=== PATIENT | female | born 1985 | race Caucasian/White ===

== ENCOUNTER 2016-04-06 17:29 | Observation (INO) ==
[2016-04-06] MEDS ORDERED: Ipratropium/Albuterol Neb 3 ML IH ONE (18:02)
[2016-04-06 18:03] LABS: Basophils % 0.4 %; Eosinophils % 0.2 %; Hematocrit 38.1 % (35.3-44.9); Hemoglobin 13.3 g/dL (11.5-15.4); Immature Granulocytes % 2.4 % (0-4); Lymphocytes # 1.7 K/mcL (0.6-4.6); Lymphocytes % 16.8 %; Mean Corpuscular HGB Conc 34.9 g/dL (31.6-35.5); Mean Corpuscular Hemoglobin 31.4 pg (28.0-33.3); Mean Corpuscular Volume 89.9 fL (83.0-100.0); Mean Platelet Volume 11.3 fL (9.4-12.4); Monocytes # 0.5 K/mcL (0.0-1.3); Monocytes % 4.9 %; Neutrophils # 7.6 K/mcL (1.6-8.9); Platelet Count 172 K/mcL (140-400); Red Blood Count 4.24 M/mcL (3.82-4.97); Red Cell Distribution Width 13.6 % (11.5-14.5); Segmented Neutrophils % 75.3 %
[2016-04-06 18:04] LABS: Bilirubin,Urine Negative (Negative); Blood,Urine Negative (Negative); Clarity,Urine Clear (Clear); Color,Urine Yellow (Yellow); Glucose,Urine (UA) Normal (Normal); Ketones,Urine Negative (Negative); Leukocyte Esterase,Urine Moderate (Negative); Nitrite,Urine Negative (Negative); Protein,Urine 30 mg/dL (Neg-Trace); Specific Gravity,Urine 1.017 (1.010-1.025); Urobilinogen,Urine Normal (Normal)
[2016-04-06 18:07] LABS: Bacteria,Urine Moderate per hpf (None-Few); Hyaline Casts,Urine None Seen per lpf (None-Few); RBC,Urine 0-3 per hpf (0-3); Squamous Epithelial Cell,Urine Many per lpf (None-Few); WBC,Urine 15-30 per hpf (0-3)
[2016-04-06 18:20] LABS: Alanine Aminotransferase 20 Units/L (0-55); Aspartate Amino Transferase 24 Units/L (5-34); BUN/Creatinine Ratio 15 (6-26); Blood Urea Nitrogen 10 mg/dL (7-20); Lactate Dehydrogenase 277 Units/L (159-327); Uric Acid 4.3 mg/dL (2.6-6.0); eGFR For African Americans > 60 (> 60); eGFR For Non-African Americans > 60 (> 60)
[2016-04-06 18:48] LABS: Protein/Creatinine Ratio,Urine 0.51 mg/mg (0-0.20)
--- NOTE | 2016-04-06 19:20 | OB/GYN History & Physical ---
Date of Encounter: 04/06/16 Time of Encounter: 19:19 Assessment and Plan (1) Elevated blood pressure reading Current visit: Yes Status: Acute Patient with blood pressure readings at home >150 systolic. Initial blood pressure here 141/93. Concern for pre-eclampsia especially given patient's past history. 1. Monitor blood pressures Q15min 2. Labs for pre-eclampsia: CBC, Liver function tests, BUN/creatinine, urine analysis with urine total protein and urine protein creatinine ratio (2) 33 weeks gestation of Current visit: Yes Status: Acute Patient is not having any contractions on the monitor. She denies any fluid loss or contracts and she reports good movement. 1. Continue to monitor heart rate and contractions. (3) Upper respiratory infection Current visit: No Status: Acute Patient with upper respiratory infection. Temperature of 100.8 here. Lungs are diminished bilaterally with diffuse wheezing. 1. Duoneb breathing treatment 2. CXR 3. Flu swab 4. O2 monitoring. Supplemental O2 if needed. Qualifiers: URI type: unspecified URI Qualified Code(s): J06.9 - Acute upper respiratory infection, unspecified (4) Factor 5 Leiden mutation, heterozygous Current visit: Yes Status: Acute Patient with history of Factor 5 Leiden mutation. Reports that she takes lovenox 40mg every night around 11pm. 1. Lovenox 40mg daily History of Present Illness Chief complaint: Elevated blood pressure and LE swelling HPI: Ms. Pelayo is a 30 year old female at 33 weeks and 4 days, patient of Dr. Disla, who presents with concern about elevated blood pressure. She reports that today she took her blood pressure and it was >150 systolic. She reports associated lower extremity swelling. She states that the swelling has been getting worse. Patient reports that she has had no blood pressure issues with this however the baby has been measuring small and she is scheduled for a US on Apr 16. Patient also reports that since Thursday she has had an upper respiratory infection with cough, congestion and runny nose. She reports some fever/chills , occasional nausea but no vomiting. She states that she currently has a headache but denies dizziness or changes in vision. She states that she feels short of breath and has occasional chest pressure with deep breaths. Patient states that she went to an urgent care on Thursday where she was given a prescription for an inhaler that she has used twice today with minimal improvement. Patient's first was a term vaginal delivery. Her second was twins and while in the hospital for pre-eclampsia she spontaneous went into labor. One twin was born via and one via vaginal delivery. Patient has a history of Crohn's Disease, Factor 5 Liden deficiency on lovenox, and scoliosis. On exam, patient is awake and alert. Her nose is red and she is congested on conversation. Lungs are diminished bilaterally with wheezing throughout. She has significant lower extremity edema, 2+ pitting on exam. Vitals show a temperature of 100.8 and elevated blood pressure at 141/93. Past Med Surg Social Fam HX - Past Medical History Medical history: GERD, other (Factor 5 Liden deficiency, scolisos, Crohn's disease) Psychiatric history: anxiety, depression - Past Surgical History Surgical History: - Social History Smoking Status: Current every day smoker Packs per day: 0.5 Smokeless Tobacco Status: No Alcohol use: none Drug use: none - Family History Father Living Status: Hx Family Cancer: Yes (lung cancer) Obstetrical History - Pregnancies : 5 Para: 3 Term: 1 : 2 Ab's: 2 Livin - History/Complications History/Complications: Patient's first was a term vaginal delivery. Her second was twins and while in the hospital for pre-eclampsia she spontaneous went into labor. One twin was born via and one via vaginal delivery. Medications and Allergies Albuterol Sulfate [Albuterol Inhaler] 2 puff IH QID PRN #1 inhaler 04/05/16 [Rx] Enoxaparin [Lovenox] 40 mg SQ DAILY 04/05/16 [History] Ferrous Sulfate [Iron] 325 mg PO BID 04/05/16 [History] Pnv95/Ferrous Fumarate/FA [ Caplet] 1 each PO DAILY 04/05/16 [History] Allergies infliximab [From Remicade] Allergy (Verified 04/02/15 12:51) See Comments Unknown Sulfa (Sulfonamide Antibiotics) Allergy (Verified 04/06/16 17:44) See Comments pt states that she does not remember what type of reaction she had when she received sulfa medication but that she remembers being told to consider it an allergy sulfamethoxazole [From Bactrim] Allergy (Verified 04/02/15 12:51) Rash tramadol [From Ultram] Allergy (Verified 04/02/15 12:51) Difficulty Breathing trimethoprim [From Bactrim] Allergy (Verified 04/02/15 12:51) Rash aspirin [ASA] Adverse Reaction (Verified 04/02/15 12:51) Gastrointestinal Upset ibuprofen Adverse Reaction (Verified 04/02/15 12:51) Gastrointestinal Upset Review of System OB - Constitutional Constitutional ROS IM: fever(s), headache(s), lethargy, weakness - Nose, mouth, and throat Nose, mouth and throat: nasal congestion, nasal discharge, sinus pressure - Cardiovascular Cardiovascular: chest pain (with inspiration), leg edema, no syncope - Respiratory Respiratory: cough, dyspnea, dyspnea on exertion, wheezing, pain on inspiration , chest congestion, pain with cough - Gastrointestinal Gastrointestinal: no abdominal pain, no change in bowel habits - Genitourinary Genitourinary: no abnormal vaginal bleeding, no difficulty urinating, no difficulty voiding, no urinary frequency, no urinary hesitancy, no urinary incontinence, no vaginal discharge - Muscloskeletal Musculoskeletal: myalgias - Neurological Nerological: headache(s), no confusion, no loss of vision, no numbness, no paresthesias Exam - Vital Signs Vital signs: Initial Vital Signs Resp Pulse Ox 18 100 04/06/16 18:58 04/06/16 18:58 - Constitutional Constitutional: well developed, well nourished, mild distress - HEENT HEENT: Normocephaly, Mucus Membranes Moist - Neck Neck exam: full ROM - Lungs Respiratory exam: decreased breath sounds, prolonged expiratory phase, wheezes - Cardiovascular Cardiovascular exam: RRR - Abdomen Abdomen: Present: bowel sounds normal, non tender - Extremities Extremities exam: pedal edema Deep Tendon Reflex Grade: 2+ Normal Results Result Diagrams: 04/06/16 17:54 04/06/16 17:54 Abnormal lab results Urine Protein 30 mg/dL (Neg-Trace) H 04/06/16 17:54 Ur Leukocyte Esterase Moderate (Negative) H 04/06/16 17:54 Urine Microscopic WBC 15-30 per hpf (0-3) H 04/06/16 17:54 Ur Squamous Epith Cells Many per lpf (None-Few) H 04/06/16 17:54 Urine Bacteria Moderate per hpf (None-Few) H 04/06/16 17:54 Protein/Creatinin Ratio 0.51 mg/mg (0-0.20) H 04/06/16 18:29 Urine Total Protein 38 mg/dL (1-14) H 04/06/16 18:29 All other labs normal.
[2016-04-06] MEDS: Betamethasone Acet/SodPhos 6 MG/ML MDV IM SCH (20:06)
[2016-04-06] MEDS ORDERED: Ringers Solution, Lactated 1,000 ML IVC ONE (20:19)
[2016-04-06] MEDS ORDERED: Ringers Solution, Lactated 1,000 ML ONE ×2 (20:27→21:38)
[2016-04-06] MEDS ORDERED: 0.9 % Sodium Chloride 1,000 ML IVC ONE (20:37)
[2016-04-06] MEDS ORDERED: Acetaminophen 325 MG TABLET PO ONE (20:38)
[2016-04-06] MEDS: Azithromycin 250 MG TABLET PO SCH (20:56)
[2016-04-06] MEDS: *HR* Enoxaparin 40 MG/0.4 ML SYRINGE SQ SCH (21:20)
--- NOTE | 2016-04-06 21:21 | Event Note ---
Date of Encounter: 04/06/16 Time of Encounter: 21:21 Patient Update 1. Elevated Blood Pressure Reading - Pre-eclampsia: Patient with continued elevated blood pressures, last 160 systolic. Urine total protein >30 at 38 and urine protein creatinine ration >0.3 at 0.5. Due to the blood pressure readings and the urine protein patient meets basic definition of pre-eclampsia. 1. Give labetalol 100mg PO for the elevated blood pressure 2. Give betamethason 12mg Q24hr x 2 doses due to being 33 weeks. 3. Will do a 24 hours urine total protein. 4. Will re drawn [facility] labs tomorrow morning - CBC, liver function tests, BUN/ creatinine, urine protein creatinine ratio 5. Please call OB if blood pressures >160/100 2. 33 weeks gestation of Patient is not having contraction on the monitor however baby is tachycardic at this time. 1. Continue to monitor heart rate 2. Bolus fluids 3. Upper Respiratory Infection - likely pneumonia Patient has now spiked a temperature of 102. CXR did not show an infiltrate at this time and WBC was within normal limits. Breathing improved after last breathing treatment however patient is still tight with fine wheezes. I believe this could likely be pneumonia and with this patient being I believe it is appropriate to be more aggressive with antibiotics. Flu swab (-) 1. Continue to monitor O2, supplemental oxygen as needed 2. Will get blood cultures x 2 and sputum cultures 3. Start ceftriaxone 1g every 24hr + Azithromycin 500mg every 24 hrs 4. Will consult internal medicine for further recommendations
--- NOTE | 2016-04-06 22:27 | Internal Med History&Physical ---
Date of Encounter: 04/08/16 Time of Encounter: 22:21 Assessment and Plan (1) Community acquired pneumonia Current visit: Yes Status: Acute Suspected community acquired pneumonia patient is hypoxic with high fever. There is no obvious infiltrate on chest x-ray though. I will start the patient empirically on ceftriaxone and azithromycin. Sputum on blood cultures. Influenza antigen was checked, was negative. Patient is elemental bronchospasm she will be kept, [id number] breathing treatments every 4 hours. She is already getting betamethasone for preeclampsia and that should help with elemental bronchospasm case has been discussed with turntable engineer patient will be transferred to medical floor for telemetry monitoring. (2) Factor 5 Leiden mutation, heterozygous Current visit: Yes Status: Acute Patient denies prior history of DVT and pulmonary embolism. The presentation is more suggestive of an infectious pathologies as high fever nasal congestion cough etc. picture suggestive moreover respiratory infection. She will be Lovenox for DVT Prophylaxis 40 Milligrams Daily Subcutaneously (3) Preeclampsia Current visit: Yes Status: Acute This will be managed by obstetrics service. Patient is on betamethasone and blood pressure medications as needed. Patient is not currently on magnesium sulfate. Discuss case with [employer] [employer] there will be monitoring her blood pressure and managing preeclampsia. They will also be monitoring her heart sounds. Qualifiers: Trimester: third trimester Qualified Code(s): O14.93 - Unspecified pre- eclampsia, third trimester (4) DVT prophylaxis Current visit: Yes Status: Acute [facility] - H&P: HPI Chief complaint: cough and fever History of present illness: Ms. Pelayo is a 30 year old female who was 33 weeks with history of factor 5 Leiden mutation discovered after screening because patient's mother had factor 5 related recurrent PEs, history of Crohn's disease not currently on any immunosuppressant medications, history of preeclampsia with her prior pregnancies 6 years ago after which she has been normotensive presents to our facility today after she was found to be hypertensive at home after she checked her blood pressure. Patient had noticed that she is gaining weight she has also been complaining of headache vision problems check her blood pressure systolic was around 160 mmHg. She was sent to the obstetrics floor is currently being managed for suspected preeclampsia. Medicine service was consulted because the patient is having fever and cough. For the past 2 days patient has been having nonproductive cough sore throat nasal stuffiness nasal tone of voice chest wheezing and shortness of breath with less than ordinary exertion in addition to fevers and chills or temperature during my interview was 102. Patient mentioned that her son was diagnosed with pneumonia. Influenza swell was performed and was negative. Patient denies any history of asthma or chronic lung problems. However she still smokes half a pack cigarettes daily for the past 15 years. Patient was saturating 93% on room air. Patient was also having chest pains only with coughing rarely with inspiration. She has never had DVT or pulmonary embolism before. Patient is currently not any immunosuppressant medications. She denies alcohol intake or illicit drug use. Her mother was diagnosed with factor 5 Leiden mutation and had multiple DVT in pulmonary embolism. Past Med Surg Social Fam HX - Past Medical History Medical history: GERD, other Psychiatric history: anxiety, depression - Past Surgical History Surgical History: - Social History Smoking Status: Current every day smoker Packs per day: 0.5 Smokeless Tobacco Status: No Alcohol use: none Drug use: none - Family History Father Living Status: Hx Family Cancer: Yes (lung cancer) Internal Medicine - H&P: Meds Albuterol Sulfate [Albuterol Inhaler] 2 puff IH QID PRN #1 inhaler 04/05/16 [Rx] Enoxaparin [Lovenox] 40 mg SQ DAILY 04/05/16 [History] Ferrous Sulfate [Iron] 325 mg PO BID 04/05/16 [History] Pnv95/Ferrous Fumarate/FA [ Caplet] 1 each PO DAILY 04/05/16 [History] Cyanocobalamin (Vitamin B-12) [Vitamin B-12] 250 mcg PO DAILY 04/07/16 [History] Allergies infliximab [From Remicade] Allergy (Verified 04/07/16 09:54) See Comments Unknown Sulfa (Sulfonamide Antibiotics) Allergy (Verified 04/07/16 09:54) See Comments pt states that she does not remember what type of reaction she had when she received sulfa medication but that she remembers being told to consider it an allergy sulfamethoxazole [From Bactrim] Allergy (Verified 04/07/16 09:54) Rash tramadol [From Ultram] Allergy (Verified 04/07/16 09:54) Difficulty Breathing trimethoprim [From Bactrim] Allergy (Verified 04/07/16 09:54) Rash aspirin [ASA] Adverse Reaction (Verified 04/07/16 09:54) Gastrointestinal Upset ibuprofen Adverse Reaction (Verified 04/07/16 09:54) Gastrointestinal Upset All Systems PM: A 10-system review of systems was performed and is negative for pertinent findings except as documented above in the HPI. Review of systems: 10 point ROS systems is negative except for HPI - Constitutional Vitals: Resp Pulse Ox 18 100 04/06/16 18:58 04/06/16 18:58 Exam: Gen.: patient is alert oriented not in distress. Cardiac: Normal S1 S2 no additional sounds or murmurs. Tachycardic chest: Diminished air entry. Expiratory wheezing abdomen soft nontender normal bowel sounds lower extremity: 1+ swelling neuro no focal deficit Head: tenderness on maxillary sinuses. nasal tone of voice. No jaundice Internal Med - H&P Results - Labs CBC & Chem 7: 04/07/16 21:22 04/07/16 04:12 Labs: Short CBC 04/06/16 Range/Units 17:54 WBC 10.1 (4.3-11.1) K/mcL Hgb 13.3 (11.5-15.4) g/dL Hct 38.1 (35.3-44.9) % Plt Count 172 (140-400) K/mcL Neutrophils # 7.6 (1.6-8.9) K/mcL BMP 04/06/16 17:54 BUN 10 Creatinine 0.65 Liver Function 04/06/16 Range/Units 17:54 AST 24 (5-34) Units/L ALT 20 (0-55) Units/L Urine 04/06/16 Range/Units 17:54 Urine Color Yellow (Yellow) Urine Clarity Clear (Clear) Urine pH 6.0 (5.0-8.0) pH Units Ur Specific [place] 1.017 (1.010-1.025) Urine Protein 30 H (Neg-Trace) mg/dL Urine Glucose (UA) Normal (Normal) mg/dL - Impressions ITS Impressions Chest X-Ray 04/06/16 18:00 IMPRESSION: Clear lungs. D/ / Maikel Vargas MD / Maikel Vargas MD Interpreting Provider: Maikel Vargas MD
--- NOTE | 2016-04-06 22:29 | Event Note ---
Date of Encounter: 04/06/16 Time of Encounter: 22:29 Appreciate evaluation and recommendations of internal medicine. It is agreed that overall patient would be better served on a general medicine floor for management of her pneumonia. Patient will be transferred to internal medicine service with OB consulting to further manage pre-eclampsia. Patient will have Qshift non-stress tests. At this time, baby's heart rate has improved and looks good on the monitor. All PIH evaluation labs are ordered. Fever has come down with tylenol. Patient now on supplemental oxygen for o2 saturation of 93%
[2016-04-07] MEDS: Ipratropium/Albuterol Neb 3 ML IH SCH ×8 (00:07→23:35)
[2016-04-07] MEDS: Fluticasone Propionate Nasal 50 MCG/SPRAY BOTTLE NS SCH ×2 (00:19→09:35)
[2016-04-07] MEDS: Ringers Solution, Lactated 1,000 ML IVC SCH ×2 (03:54→12:37)
[2016-04-07 04:46] LABS: Alanine Aminotransferase 18 Units/L (0-55); Albumin 2.6 g/dL (3.5-5.0); Albumin/Globulin Ratio 0.7 (1.1-2.2); Alkaline Phosphatase 210 Units/L (38-126); Aspartate Amino Transferase 19 Units/L (5-34); BUN/Creatinine Ratio 16 (6-26); Bilirubin,Direct 0.1 mg/dL (0.0-0.5); Bilirubin,Indirect 0.2 mg/dL (0.0-1.2); Bilirubin,Total 0.3 mg/dL (0.2-1.2); Blood Urea Nitrogen 9 mg/dL (7-20); Calcium 8.4 mg/dL (8.6-10.8); Carbon Dioxide 16 mEq/L (19-29); Chloride 107 mEq/L (98-109); Globulin 3.6 g/dL (2.4-3.5); Glucose 110 mg/dL (70-99); Magnesium 1.5 mg/dL (1.6-2.6); Osmolality,Calculated 277 (280-300); Potassium 3.7 mEq/L (3.5-4.5); Sodium 134 mEq/L (136-145); Total Protein 6.2 g/dL (6.0-8.3); eGFR For African Americans > 60 (> 60); eGFR For Non-African Americans > 60 (> 60)
[2016-04-07 04:47] LABS: Alanine Aminotransferase 19 Units/L (0-55); Aspartate Amino Transferase 18 Units/L (5-34); BUN/Creatinine Ratio 16 (6-26); Blood Urea Nitrogen 9 mg/dL (7-20); Uric Acid 4.3 mg/dL (2.6-6.0); eGFR For African Americans > 60 (> 60); eGFR For Non-African Americans > 60 (> 60)
--- NOTE | 2016-04-07 09:15 | OB/GYN Progress Note ---
Date of Encounter: 04/07/16 Time of Encounter: 09:00 - Assessment and Plan (1) 33 weeks gestation of Current Visit: Yes Status: Acute (2) Community acquired pneumonia Current Visit: Yes Status: Acute Once patient is cleared by medicine and they feel she is stable enough to come back to for transfer back down stairs. (3) DVT prophylaxis Current Visit: Yes Status: Acute (4) Factor 5 Leiden mutation, heterozygous Current Visit: Yes Status: Acute Subjective - Subjective Interval history: Patient states feeling much better than yesterday still having some shortness of breath but improving. Not complaining of any obstetrical issues baby is still moving no contractions. Antepartum ROS: other Objective - Vital Signs Vital Signs: Vital Signs Temp Pulse Resp BP Pulse Ox 04/07/16 07:16 97.7 F 92 16 123/83 97 04/07/16 06:45 91 18 125/70 96 04/07/16 06:36 98 18 104/62 94 L 04/07/16 06:15 94 18 120/66 90 L 04/07/16 06:05 106 16 134/95 95 04/07/16 05:45 103 16 128/80 96 04/07/16 05:20 94 16 136/80 97 04/07/16 04:50 16 95 04/07/16 04:38 100 16 120/73 96 04/07/16 04:15 78 130/71 96 04/07/16 03:45 101 16 128/91 96 04/07/16 03:15 97.4 F L 82 20 135/82 95 04/07/16 02:45 83 16 118/74 97 04/07/16 02:15 99 18 130/111 96 04/07/16 01:45 80 18 127/77 96 04/07/16 01:18 91 18 137/93 96 04/07/16 01:10 87 16 141/84 95 04/07/16 00:08 17 96 04/06/16 23:41 97.9 F 94 21 129/83 95 04/06/16 18:58 18 100 Intake and Output 04/06/16 04/07/16 04/07/16 23:59 07:59 15:59 Intake Total 0 / 0 100 / 100 Output Total 200 / 200 700 / 700 Balance -200 / -200 -600 / -600 Intake: Oral 0 / 0 100 / 100 Output: Urine 200 / 200 700 / 700 Other: # Voids 0 Weight 109.3 kg 109.3 kg Patient Weight 04/07/16 23:59 Weight 109.3 kg - Exam FHR: category 1 FHR comments: heart tones 140s reactive no contraction seen on the NST Abdomen: Present: gravid - Labs Labs: Abnormal lab results Sodium 134 mEq/L (136-145) L 04/07/16 04:12 Carbon Dioxide 16 mEq/L (19-29) L 04/07/16 04:12 Glucose 110 mg/dL (70-99) H 04/07/16 04:12 Calculated Osmolality 277 (280-300) L 04/07/16 04:12 Calcium 8.4 mg/dL (8.6-10.8) L 04/07/16 04:12 Magnesium 1.5 mg/dL (1.6-2.6) L 04/07/16 04:12 Alkaline Phosphatase 210 Units/L (38-126) H 04/07/16 04:12 Albumin 2.6 g/dL (3.5-5.0) L 04/07/16 04:12 Globulin 3.6 g/dL (2.4-3.5) H 04/07/16 04:12 Albumin/Globulin Ratio 0.7 (1.1-2.2) L 04/07/16 04:12 Urine Protein 30 mg/dL (Neg-Trace) H 04/06/16 17:54 Ur Leukocyte Esterase Moderate (Negative) H 04/06/16 17:54 Urine Microscopic WBC 15-30 per hpf (0-3) H 04/06/16 17:54 Ur Squamous Epith Cells Many per lpf (None-Few) H 04/06/16 17:54 Urine Bacteria Moderate per hpf (None-Few) H 04/06/16 17:54 Protein/Creatinin Ratio 0.51 mg/mg (0-0.20) H 04/06/16 18:29 Urine Total Protein 38 mg/dL (1-14) H 04/06/16 18:29
[2016-04-07] MEDS: Prenatal Vit/FA 1 EACH TABLET PO SCH (09:35)
[2016-04-07] MEDS ORDERED: Saline Nasal Spray 44 ML BOTTLE NS PRN (11:29)
[2016-04-07] MEDS ORDERED: Acetaminophen 325 MG TABLET PO PRN (11:48)
--- NOTE | 2016-04-07 13:28 | Internal Med Progress Note ---
<Erick Lewis - Last Filed: 04/07/16 17:22> Date of Encounter: 04/07/16 Time of Encounter: 09:15 - Assessment and plan (1) Upper respiratory infection Current Visit: No Status: Acute Assessment and plan: Patient demonstrates rhinorrhea, postnasal drainage associated with cough. Patient is afebrile and influenza was negative. Current antibiotic coverage includes ceftriaxone and azithromycin. Patient was admitted with dyspnea in the setting of preeclampsia. Respiratory status improving, continue scheduled DuoNeb. Low suspicion for pneumonia at this time. Patient's dyspnea may be associated with preeclampsia, well continue current treatment with azithromycin for total 5 days Plan: Continue azithromycin Continue Flonase 50 g daily. START Nasal saline rinse Qualifiers: URI type: unspecified URI Qualified Code(s): J06.9 - Acute upper respiratory infection, unspecified (2) 33 weeks gestation of Current Visit: Yes Status: Acute Assessment and plan: Patient is 30 weeks gestation and currently followed by ROUTE SALES REPRESENTATIVE during inpatient stay. Patient's abdomen is nontender to palpation, . Deferring management to ROUTE SALES REPRESENTATIVE. We will transfer patient to labor and delivery unit when medically cleared. (3) Preeclampsia Current Visit: Yes Status: Acute Assessment and plan: 30-year-old female who is 33 weeks gestation admitted with hypertension, protein in her urine and shortness of breath meeting preeclampsia criteria. Patient's blood pressures are normotensive after starting labetalol. Management per ROUTE SALES REPRESENTATIVE. Qualifiers: Qualified Code(s): O14.93 - Unspecified pre-eclampsia, third trimester (4) Factor 5 Leiden mutation, heterozygous Current Visit: Yes Status: Acute Assessment and plan: Patient has known history of factor V Leiden, denies any history of DVT or PE. She is currently on 40 mg Lovenox subcutaneously once a day during her . There is concern for pulmonary embolism as the patient is tachycardic, dyspneic, chest x-rays clear, history of factor V Leiden. Plan: -Bilateral lower extremities venous Doppler to evaluate for potential DVTs - Echocardiogram to evaluate for cardiomegaly. - If scans are clear patient will be transferred to labor and delivery for further preeclamptic management. (5) DVT prophylaxis Current Visit: Yes Status: Acute Assessment and plan: Patient on 40 of Lovenox subcutaneously daily. - Subjective Interval history: Mrs. Pelayo 30-year-old female for history of factor V Leiden, preeclampsia with previous pregnancies has been seen and evaluated patient bedside this morning. She is awake alert and interactive, in no acute distress said that she is much improved compared to admission. She feels her breathing is improved and she denies chest pain, chest pressure, palpitations or dyspnea. She is tolerating nasal cannula oxygen at 2 L which feels is sufficient. She discussed her history of preeclampsia, recurrent urinary tract infections and factor V Leiden. She denies any history of blood clots but was diagnosed after her second miscarriage and her mother had frequent blood clots. Currently urine she is taking 40 of Lovenox subcutaneous daily. She denies any productive cough or blood in her sputum, blood in her bowels or blood in her urine. She denies any current discomfort with urination. She admitted to occasional blurriness in her vision but currently her vision is without any abnormalities. She does have lower extremity edema which she says has been slightly worse as her has advanced. - Constitutional Vitals: Temp Pulse Resp BP Pulse Ox 98.4 F 104 16 124/87 94 L 04/07/16 11:34 04/07/16 11:34 04/07/16 11:34 04/07/16 11:34 04/07/16 11:34 General appearance: Present: cooperative, A&O X 3, pleasant, no acute distress - Head Head exam: Present: atraumatic, normocephalic - Eye Eye exam: Present: PERRL, conjuntiva pink, sclera anicteric Pupils: Present: PERRL - ENT ENT exam: Present: mucous membranes moist - Neck Neck exam general surgery: Present: supple, trachea midline - Respiratory Respiratory exam: Present: CTAB - Cardiovascular Cardiovascular exam: Present: RRR, systolic murmur Additional comments: Grade 2/6 systolic murmur - GI/Abdominal Additional comments: abdomen, nontender to palpation fundal height appropriate. - Extremities Exam Additional comments: Patient has bilateral lower extremity 1+ edema without any signs of erythema and nontender to palpation. Bilateral posterior tibial dorsal pedal pulses are 2+ bilaterally/symmetric. - Back Exam Back exam: Present: normal inspection - Neurological Exam Neurological exam: Present: alert, CN II-XII intact, oriented X3, reflexes normal (Reflexes are 2+ brachial, patellar and Achilles bilaterally.), no focal deficits, strengths equal and symetr throughout - Psychiatric Psychiatric exam: Present: normal affect, normal mood - Skin Skin exam: Present: warm Internal Medicine: Result - Labs CBC & Chem 7: 04/06/16 17:54 04/07/16 04:12 Labs: Short CBC 04/06/16 Range/Units 17:54 WBC 10.1 (4.3-11.1) K/mcL Hgb 13.3 (11.5-15.4) g/dL Hct 38.1 (35.3-44.9) % Plt Count 172 (140-400) K/mcL Neutrophils # 7.6 (1.6-8.9) K/mcL BMP 04/06/16 04/07/16 04/07/16 17:54 04:12 04:12 Sodium 134 L Potassium 3.7 Chloride 107 Carbon Dioxide 16 L BUN 10 9 9 Creatinine 0.65 0.58 0.58 Glucose 110 H Calcium 8.4 L Liver Function 04/06/16 04/07/16 04/07/16 Range/Units 17:54 04:12 04:12 Total Bilirubin 0.3 (0.2-1.2) mg/dL Direct Bilirubin 0.1 (0.0-0.5) mg/dL AST 24 18 19 (5-34) Units/L ALT 20 19 18 (0-55) Units/L Alkaline Phosphatase 210 H (38-126) Units/L Albumin 2.6 L (3.5-5.0) g/dL Urine 04/06/16 Range/Units 17:54 Urine Color Yellow (Yellow) Urine Clarity Clear (Clear) Urine pH 6.0 (5.0-8.0) pH Units Ur Specific [place] 1.017 (1.010-1.025) Urine Protein 30 H (Neg-Trace) mg/dL Urine Glucose (UA) Normal (Normal) mg/dL - Impressions Impressions Chest X-Ray 04/06/16 18:00 IMPRESSION: Clear lungs. D/ / Maikel Vargas MD / Maikel Vargas MD Interpreting Provider: Maikel Vargas MD <Jeffrey Jones - Last Filed: 04/07/16 18:34> Date of Encounter: 04/07/16 - Assessment and plan (1) Acute bronchitis Current Visit: Yes Status: Acute Qualifiers: Bronchitis organism: other organism Qualified Code(s): J20.8 - Acute bronchitis due to other specified organisms (2) Upper respiratory infection Current Visit: No Status: Acute Qualifiers: URI type: unspecified URI Qualified Code(s): J06.9 - Acute upper respiratory infection, unspecified (3) Sinus tachycardia Current Visit: Yes Status: Acute (4) Preeclampsia Current Visit: Yes Status: Acute Qualifiers: Trimester: third trimester Qualified Code(s): O14.93 - Unspecified pre- eclampsia, third trimester (5) Factor 5 Leiden mutation, heterozygous Current Visit: Yes Status: Acute - Constitutional Vitals: Temp Pulse Resp BP Pulse Ox 97.9 F 92 18 130/93 94 L 04/07/16 14:59 04/07/16 14:59 04/07/16 15:52 04/07/16 14:59 04/07/16 15:52 Internal Medicine: Result - Labs CBC & Chem 7: 04/06/16 17:54 04/07/16 04:12 Labs: BMP 04/07/16 04/07/16 04:12 04:12 Sodium 134 L Potassium 3.7 Chloride 107 Carbon Dioxide 16 L BUN 9 9 Creatinine 0.58 0.58 Glucose 110 H Calcium 8.4 L Liver Function 04/07/16 04/07/16 Range/Units 04:12 04:12 Total Bilirubin 0.3 (0.2-1.2) mg/dL Direct Bilirubin 0.1 (0.0-0.5) mg/dL AST 18 19 (5-34) Units/L ALT 19 18 (0-55) Units/L Alkaline Phosphatase 210 H (38-126) Units/L Albumin 2.6 L (3.5-5.0) g/dL - Impressions Impressions Chest X-Ray 04/06/16 18:00 IMPRESSION: Clear lungs. D/ / Maikel Vargas MD / Maikel Vargas MD Interpreting Provider: Maikel Vargas MD - Attending Attestation I examined this patient and my medical decision-making was reviewed with the Resident Physician on 04/07/16. I agree with the documented findings, disposition and treatment plan as described except to the extent set forth below. Ms. Pelayo is currently in observation for PIH, acute bronchitis and hypoxemia. She remains high risk due to and potential for further respiratory complications. Ms. Pelayo feels somewhat better than last evening. She is coughing a lot and has a lot of upper airway congestion. No fever. No wheeze. BP has been managed by OB. No diarrhea. Exam Alert. Mod distress due to respiratory issues. Mucus membranes moist Heart tachy and regular Lungs with scant rhonchi Abd soft I/P 1. Sinus tachycardia - ? related to aerosols and illness. Continue IV fluids 2. Acute bronchitis - on IV abx 3. PIH - per OB 4. Hx UC Further diagnoses and plan as above.
--- NOTE | 2016-04-07 16:24 | Venous Imaging Report ---
LE Venous Duplex Patient Name:Adrianne Pelayo Order Number:[id number] Procedure Date:04/07/2016 Date:1985Age:30 yrs Gender:Female Location:[facility] Room #: 2NE28 Yoga Teacher:Alecia Molina RVT, RDSTEPH Referring MD:Jeffrey Jones DO team otr truck driver:Analia Heredia MD Reading MD:Morgan Martínez MD , FACS Primary Indications:Shortness of Breath Secondary Indications: Risk Factors Yes/No Anticoagulants Yes Hx of DVT No Impressions: Bilateral lower extremity: normal superficial and deep exam. Recommendations: After imaging the patient returned to their room. Critical findings reported to [place] by phone by Alecia Molina RVT, RDSTEPH. Findings Venous Duplex Results: Right: Venous imaging of the lower extremity reveals full patency and normal vessel compressibility of the right distal iliac, right common femoral, right superficial femoral, right popliteal, right posterior tibial, right peroneal, right great saphenous and right lesser saphenous. Doppler signals in the evaluated veins were normal. Left: Venous imaging of the lower extremity reveals full patency and normal vessel compressibility of the left distal iliac, left common femoral, left superficial femoral, left popliteal, left posterior tibial, left peroneal, left great saphenous and left lesser saphenous. Doppler signals in the evaluated veins were normal. Prior Study: No prior study available for comparison. Lower Extremity Venous Duplex Side Vein Compress Spontaneous Flow Augment Diameter (cm) Depth (cm) Right Distal Iliac Normal Yes Phasic Yes Right Common Femoral Normal Yes Phasic Yes Right Superficial Femoral Normal Yes Phasic Yes Right Popliteal Normal Yes Phasic Yes Right Posterior Tibial Normal Yes Phasic Yes Right Peroneal Normal Yes Phasic Yes Right Great Saphenous Normal Yes Phasic Yes Right Lesser Saphenous Normal Yes Phasic Yes Left Distal Iliac Normal Yes Phasic Yes Left Common Femoral Normal Yes Phasic Yes Left Superficial Femoral Normal Yes Phasic Yes Left Popliteal Normal Yes Phasic Yes Left Posterior Tibial Normal Yes Phasic Yes Left Peroneal Normal Yes Phasic Yes Left Great Saphenous Normal Yes Phasic Yes Left Lesser Saphenous Normal Yes Phasic Yes Updated by Morgan Martínez MD, FACS on 04/07/2016 4:18:25 PM Morgan Martínez MD electronically signed on 04/07/2016 4:18:47 PM with status of Final
--- NOTE | 2016-04-07 17:44 | Electrocardiograph Report ---
[facility] Test Date: 2016-04-07 Pat Name: Adrianne Pelayo Department: 111 Room: 2NE28 Gender: F Chief Deputy Court Clerk: LILI : 1985 Requested By: Emil Hull Order Number: [id number] Reading MD: Felix Rhodes DO Measurements Intervals [place] Rate: 87 P: 40 WV: 163 QRS: 54 QRSD: 85 T: 53 QT: 369 QTc: 413 Interpretive Statements Sinus rhythm Electronically Signed On 04-07-16 17:43:37 EST by Felix Rhodes DO
[2016-04-07] MEDS: Azithromycin 250 MG TABLET PO SCH (20:42)
[2016-04-07] MEDS: Betamethasone Acet/SodPhos 6 MG/ML MDV IM SCH (20:43)
[2016-04-07 21:54] LABS: Hematocrit 32.8 % (35.3-44.9); Mean Corpuscular HGB Conc 34.1 g/dL (31.6-35.5); Mean Corpuscular Hemoglobin 31.4 pg (28.0-33.3); Mean Corpuscular Volume 91.9 fL (83.0-100.0); Mean Platelet Volume 11.3 fL (9.4-12.4); Nucleated Red Blood Cells 0.7 /100 WBC (0); Platelet Count 139 K/mcL (140-400); Red Blood Count 3.57 M/mcL (3.82-4.97); Red Cell Distribution Width 14.1 % (11.5-14.5)
[2016-04-07 22:02] LABS: Hemoglobin 11.2 g/dL (11.5-15.4)
[2016-04-07 22:34] LABS: Lymphocytes # 2.3 K/mcL (0.6-4.6); Monocytes # 0.3 K/mcL (0.0-1.3); Neutrophils # 2.8 K/mcL (1.6-8.9); Platelet Estimate Normal (Normal)
[2016-04-07] MEDS: *HR* Enoxaparin 40 MG/0.4 ML SYRINGE SQ SCH (22:54)
[2016-04-08] MEDS: Ringers Solution, Lactated 1,000 ML IVC SCH (03:39)
[2016-04-08] MEDS: Ipratropium/Albuterol Neb 3 ML IH SCH ×2 (04:41→08:20)
[2016-04-08] MEDS: Fluticasone Propionate Nasal 50 MCG/SPRAY BOTTLE NS SCH (08:36)
[2016-04-08] MEDS: Prenatal Vit/FA 1 EACH TABLET PO SCH (08:36)
[2016-04-08] MEDS ORDERED: FERROUS FUMARATE PO SCH (09:32)
[2016-04-08] MEDS ORDERED: PNV95 PO SCH (09:32)
[2016-04-08] MEDS ORDERED: Ipratropium/Albuterol Neb 3 ML IH PRN (09:32)
[2016-04-08] MEDS ORDERED: [UNRECOGNIZED DRUG - OTHER] PO SCH (09:32)
--- NOTE | 2016-04-08 09:49 | ECHO - Doppler Report ---
Echocardiogram Name: Adrianne Pelayo Date of Study: 04/07/2016 Date: 1985 Ht: 67.0 in Medical Record#: [id number] Age: 30 Wt: 240.0 lb Gender: Female BSA: 2.18 Order #: [id number] Location: [facility] Room #: 2NE28 Reading Physician: Anna Peterson DO Nutrition Faculty Member: Yvette Tony RDCS Ordering Physician: Erick Lewis DO Primary Physician: None Indications: Cardiomegaly Impressions: LVEF 55%. Normal left ventricular size and systolic function. Normal diastolic function of the left ventricle. Normal right ventricular size and function. Mild mitral regurgitation. Mild tricuspid regurgitation. No pulmonary hypertension. Left Ventricular Wall Motion: Rest Echo Findings All wall segments showed normal motion. Findings: Study Quality * Technically adequate exam. ECG Findings * Normal sinus rhythm. Left Ventricle * Normal LV chamber size, wall thickness and function. * Normal left ventricular diastolic function. * LVEF 55%. Left Atrium * Normal left atrial size. Mitral Valve * Normal mitral valve structure. * No mitral stenosis. * Mild mitral regurgitation. Aortic Valve * No aortic regurgitation. * Trileaflet aortic valve. * Normal aortic valve structure. * No aortic stenosis. Tricuspid Valve * Normal tricuspid valve structure. * Mild tricuspid regurgitation. Pulmonic Valve * Pulmonic valve is not well visualized. * No pulmonic stenosis. * No pulmonic regurgitation. Pulmonary Artery * Pulmonary artery not well visualized. Right Ventricle * Normal right ventricular structure and function. Right Atrium * Normal right atrial size. Interatrial Septum * Interatrial septum not well evaluated. IVC * The IVC is not well evaluated. Pericardium * There is no pericardial effusion present. Aorta * Normally sized aortic root. History Family History of CAD Measurements: BP: 130/ 93 2D Normal Values IVSd: 1.00 cm 0.6 - 1.0 cm LVIDd: 5.00 cm 3.7 - 5.6 cm LVPWd: 1.00 cm 0.6 - 1.1 cm LVIDs: 3.16 cm 1.5 - 3.6 cm AO: 2.50 cm < 4.0 cm LA: 4.10 cm 2.0 - 4.0cm %FS: 46.70 cm >25 % LA volume: 55 Mitral Valve Peak E:1.27 m/sec Peak A:.81 m/sec E/A Ratio:1.6 Peak E' Lat Jarod:15.1 cm/s Peak E' Med Jarod:18.5 cm/s E/E' Lat Ratio:8.4 E/E' Med Ratio:6.9 Tricuspid Valve TV Regurg Peak Grad: 27.00mmHg TV Regurg Peak Jarod: 2.58m/sec Updated by Anna Peterson on 04/08/2016 9:43:26 AM electronically signed on 04/08/2016 9:44:06 AM with status of Final Wall Motion [place]: 1=Normal, 2=Hypokinesis, 3=Akinesis, 4=Dyskinesis, 5=Aneurysmal, 6=Hyperkinetic, X=Not Visualized (Blank)=Missing
--- NOTE | 2016-04-08 10:41 | Internal Med Progress Note ---
<Erick Lewis - Last Filed: 04/08/16 10:37> Date of Encounter: 04/08/16 Time of Encounter: 08:25 - Assessment and plan (1) Upper respiratory infection Status: Acute Assessment and plan: Patient demonstrates rhinorrhea, postnasal drainage associated with cough. Patient is afebrile and influenza was negative. Current antibiotic coverage includes ceftriaxone and azithromycin. Patient was admitted with dyspnea in the setting of preeclampsia. Respiratory status improving, continue scheduled DuoNeb. Low suspicion for pneumonia at this time. Patient's dyspnea may be associated with smoking and preeclampsia, well continue current treatment with azithromycin for total 5 days Plan: Continue azithromycin Continue Flonase 50 g daily. Continue Nasal saline rinse Qualifiers: URI type: unspecified URI Qualified Code(s): J06.9 - Acute upper respiratory infection, unspecified (2) 33 weeks gestation of Status: Acute Assessment and plan: Patient is 30 weeks gestation and currently followed by CHAIR INSPECTOR during inpatient stay. Patient's abdomen is nontender to palpation, . Deferring management to CHAIR INSPECTOR. We will transfer patient to labor and delivery unit. (3) Preeclampsia Status: Acute Assessment and plan: 30-year-old female who is 33 weeks gestation admitted with hypertension, protein in her urine and shortness of breath meeting preeclampsia criteria. Patient's blood pressures are normotensive after starting labetalol. Management per CHAIR INSPECTOR. Qualifiers: Trimester: third trimester Qualified Code(s): O14.93 - Unspecified pre- eclampsia, third trimester (4) Factor 5 Leiden mutation, heterozygous Status: Acute Assessment and plan: Patient has known history of factor V Leiden, denies any history of DVT or PE. She is currently on 40 mg Lovenox subcutaneously once a day during her . Bilateral lower extremity venous Doppler: Bilateral lower extremities normal superficial and deep examination. Echocardiogram performed 04/08/2016: Demonstrates LVEF 55%, normal left ventricular size and systolic function. Normal diastolic function of left ventricle. Mild mitral regurgitation. Mild tricuspid regurgitation. No pulmonary hypertension. Plan: - Patient stable to transfer to labor and delivery. - Continue subcutaneous Lovenox. (5) Sinus tachycardia Status: Acute Assessment and plan: Patient demonstrates sinus tachycardia with sitting up and ambulation likely secondary to dual neb treatments. Duo nebulizer treatments have been adjusted to when necessary. (6) DVT prophylaxis Status: Acute Assessment and plan: Patient on 40 of Lovenox subcutaneously daily. - Subjective Interval history: Mrs. Pelayo 30-year-old female for history of factor V Leiden, preeclampsia with previous pregnancies has been seen and evaluated patient bedside this morning. She is awake alert and interactive, in no acute distress said that she is much improved compared to admission. She feels her breathing is improved and she denies chest pain, chest pressure, palpitations or dyspnea. She is sitting up in bed maintaining oxygen saturations greater than 90% at room air. She continues to have rhinorrhea and nasal congestion but feels that her breathing is back to baseline. She denies any nausea or vomiting and has been tolerating by mouth intake. She feels comfortable with transfer back down to labor and delivery this morning. - Constitutional Vitals: Temp Pulse Resp BP Pulse Ox 98.3 F 82 16 119/66 97 04/08/16 07:23 04/08/16 07:23 04/08/16 08:34 04/08/16 07:23 04/08/16 08:34 General appearance: Present: cooperative, A&O X 3, pleasant, no acute distress - Head Head exam: Present: atraumatic, normocephalic - Eye Eye exam: Present: PERRL, conjuntiva pink, sclera anicteric Pupils: Present: PERRL - ENT ENT exam: Present: mucous membranes moist Additional comments: Swollen turbinates bilateral. - Neck Neck exam general surgery: Present: supple - Respiratory Respiratory exam: Present: wheezes Additional comments: Patient has diffuse inspiratory expiratory wheeze with improvement in restriction. Chest symmetrical bilateral quarreling respiratory effort. Respirations are nonlabored. No rhonchi or rales. - Cardiovascular Cardiovascular exam: Present: RRR - GI/Abdominal Additional comments: Abdomen is , nontender to palpation - Extremities Exam Additional comments: Patient has bilateral 1+ pitting edema nontender to palpation - Back Exam Back exam: Present: normal inspection - Neurological Exam Neurological exam: Present: alert, oriented X3, reflexes normal, no focal deficits, strengths equal and symetr throughout - Psychiatric Psychiatric exam: Present: normal affect, normal mood - Skin Skin exam: Present: warm Internal Medicine: Result - Labs CBC & Chem 7: 04/07/16 21:22 04/07/16 04:12 Labs: Short CBC 04/07/16 Range/Units 21:22 WBC 5.4 (4.3-11.1) K/mcL Hgb 11.2 L D (11.5-15.4) g/dL Hct 32.8 L (35.3-44.9) % Plt Count 139 L (140-400) K/mcL Neutrophils # 2.8 (1.6-8.9) K/mcL Consult Discharge Plan - Plan Instructions: Upper Respiratory Infection (DC) Prescriptions: Pseudoephedrine [Sudafed] 30 mg PO Q4HR #12 tablet <Jeffrey Jones - Last Filed: 04/08/16 18:30> Date of Encounter: 04/08/16 - Assessment and plan (1) Acute bronchitis Status: Acute Qualifiers: Bronchitis organism: other organism Qualified Code(s): J20.8 - Acute bronchitis due to other specified organisms (2) Upper respiratory infection Status: Acute Qualifiers: URI type: unspecified URI Qualified Code(s): J06.9 - Acute upper respiratory infection, unspecified (3) Sinus tachycardia Status: Acute (4) Preeclampsia Status: Acute Qualifiers: Trimester: third trimester Qualified Code(s): O14.93 - Unspecified pre- eclampsia, third trimester (5) Factor 5 Leiden mutation, heterozygous Status: Acute - Constitutional Vitals: Temp Pulse Resp BP Pulse Ox 97.6 F 78 16 136/85 98 04/08/16 13:52 04/08/16 13:52 04/08/16 13:52 04/08/16 13:52 04/08/16 13:52 Internal Medicine: Result - Labs CBC & Chem 7: 04/07/16 21:22 04/07/16 04:12 Labs: Short CBC 04/07/16 Range/Units 21:22 WBC 5.4 (4.3-11.1) K/mcL Hgb 11.2 L D (11.5-15.4) g/dL Hct 32.8 L (35.3-44.9) % Plt Count 139 L (140-400) K/mcL Neutrophils # 2.8 (1.6-8.9) K/mcL - Attending Attestation Ms. Pelayo is currently on medical floor for acute bronchitis complicating PIH. Ms. Pelayo is doing better today. She has less cough and not as hypoxic or tachycardic. Exam Alert. Comfortable Heart reg Lungs with scattered rhonchi but few I/P 1. Acute bronchitis 2. PIH Plan transfer to OB - will sign off - call if needed. Complete azithromycin. Further diagnoses and plan as above.
[2016-04-08 10:42] LABS: Total Volume 24 Hour,Urine 1.94 Liters (0.60-1.60)
[2016-04-08] MEDS ORDERED: Acetaminophen 325 MG TABLET PO PRN (12:06)
[2016-04-08 12:18] LABS: Creatinine 24 Hour,Urine 1.4 g/day (0.71-1.65)
[2016-04-08 12:18] LABS: Protein/Creatinine Ratio,Urine 0.33 mg/mg (0-0.20)
--- NOTE | 2016-04-08 13:01 | OB/GYN Progress Note ---
Date of Encounter: 04/08/16 Time of Encounter: 12:58 - Assessment and Plan (1) 33 weeks gestation of Current Visit: Yes Status: Acute I will stop her azithromycin because she does not have pneumonia, I will also stop the 24 hr urine protein since we already know that she has preeclampsia, I did mental health counselor her that we will determine if she is severe with worsening labs eg thrombocytopenia, worsening creatinine/liver labs etc and symptoms such MINER, SOB etc, I'll send her sudafed, She will be discharged to follow up with Dr Disla tomorrow. Subjective - Subjective Interval history: Ms. Pelayo is a 30 year old female at 33+ weeks who was admitted with SOB in the setting of preeclampsia without severe features. She had ECHO, CXR, flu testing which returned negative. I saw her this AM and determined that she has a cold. She does not report LOF, VB or ctxs, feels good FM. Objective - Vital Signs Vital Signs: Vital Signs Temp Pulse Resp BP Pulse Ox 04/08/16 09:30 97.7 F 79 16 132/81 04/08/16 08:34 16 97 04/08/16 07:23 98.3 F 82 18 119/66 98 04/08/16 04:41 16 98 04/08/16 04:15 97.7 F 76 18 122/73 90 L 04/08/16 00:16 98.1 F 68 18 127/79 98 04/07/16 23:35 18 98 04/07/16 20:49 18 94 L 04/07/16 20:35 97.8 F 91 19 139/97 90 L 04/07/16 15:52 18 94 L 04/07/16 14:59 97.9 F 92 16 130/93 98 Intake and Output 04/07/16 04/08/16 04/08/16 23:59 07:59 15:59 Intake Total 1480 / 1480 550 / 550 Output Total 350 / 350 700 / 700 150 / 150 Balance 1130 / 1130 -150 / -150 -150 / -150 Intake: IV Fluids 1000 / 1000 Lactated Ringers 1,000 ML 1000 / 1000 @ 125 mls/hr IVC .Q8H SUSHANT Rx#:[id number] Oral 480 / 480 550 / 550 Output: Urine 350 / 350 700 / 700 150 / 150 Other: Meal Dinner Percent of Meal Consumed 100% # Voids 2 Weight 115.5 kg 107.7 kg Patient Weight 04/08/16 23:59 Weight 107.7 kg - Exam Auscultation: bilateral: wheezes (scattered ) Abdomen: Present: normal appearance Uterus: Present: normal - Labs Labs: Abnormal lab results RBC 3.57 M/mcL (3.82-4.97) L 04/07/16 21:22 Hgb 11.2 g/dL (11.5-15.4) L D 04/07/16 21:22 Hct 32.8 % (35.3-44.9) L 04/07/16 21:22 Plt Count 139 K/mcL (140-400) L 04/07/16 21:22 Nucleated RBCs/100 WBC 0.7 /100 WBC (0) H 04/07/16 21:22 Sodium 134 mEq/L (136-145) L 04/07/16 04:12 Carbon Dioxide 16 mEq/L (19-29) L 04/07/16 04:12 Glucose 110 mg/dL (70-99) H 04/07/16 04:12 Calculated Osmolality 277 (280-300) L 04/07/16 04:12 Calcium 8.4 mg/dL (8.6-10.8) L 04/07/16 04:12 Magnesium 1.5 mg/dL (1.6-2.6) L 04/07/16 04:12 Alkaline Phosphatase 210 Units/L (38-126) H 04/07/16 04:12 Albumin 2.6 g/dL (3.5-5.0) L 04/07/16 04:12 Globulin 3.6 g/dL (2.4-3.5) H 04/07/16 04:12 Albumin/Globulin Ratio 0.7 (1.1-2.2) L 04/07/16 04:12 Urine Protein 30 mg/dL (Neg-Trace) H 04/06/16 17:54 Ur Leukocyte Esterase Moderate (Negative) H 04/06/16 17:54 Urine Microscopic WBC 15-30 per hpf (0-3) H 04/06/16 17:54 Ur Squamous Epith Cells Many per lpf (None-Few) H 04/06/16 17:54 Urine Bacteria Moderate per hpf (None-Few) H 04/06/16 17:54 Urine Total Volume 1.94 Liters (0.60-1.60) H 04/07/16 22:00 Ur Total Protein 24 Hr 369 mg/day (0-299) H 04/07/16 22:00 Protein/Creatinin Ratio 0.33 mg/mg (0-0.20) H 04/08/16 11:55 Urine Total Protein 19 mg/dL (1-14) H 04/08/16 11:55
[2016-04-08 14:12] VITALS: BP 136/85
[2016-04-08] MEDS ORDERED: Azithromycin 250 MG TABLET PO SCH (21:00)
[2016-04-08] MEDS ORDERED: *HR* Enoxaparin 40 MG/0.4 ML SYRINGE SQ SCH (22:00)
[2016-04-09] MEDS ORDERED: Prenatal Vit/FA 1 EACH TABLET PO SCH (09:00)
[2016-04-09] MEDS ORDERED: Fluticasone Propionate Nasal 50 MCG/SPRAY BOTTLE NS SCH (09:00)
== END 2016-04-08 16:05 | disposition home or self-care (01) ==
LOC: 1NENULAB → SUATTDRO 17:29 → 2NENU 23:34 → 1NENUOBS 04-08 09:27
PROVIDERS: ADMIT Obstetrics & Gynecology; ATTEND Internal Medicine

== ENCOUNTER 2016-04-11 07:40 | Inpatient (IN) ==
[2016-04-11 03:20] LABS: Hematocrit 35.6 % (35.3-44.9); Hemoglobin 12.1 g/dL (11.5-15.4); Mean Corpuscular Hemoglobin 30.8 pg (28.0-33.3); Mean Corpuscular Volume 90.6 fL (83.0-100.0); Mean Platelet Volume 11.8 fL (9.4-12.4); Nucleated Red Blood Cells 1.3 /100 WBC (0); Platelet Count 177 K/mcL (140-400); Red Blood Count 3.93 M/mcL (3.82-4.97); Red Cell Distribution Width 13.6 % (11.5-14.5)
[2016-04-11 03:37] LABS: Alanine Aminotransferase 36 Units/L (0-55); Aspartate Amino Transferase 29 Units/L (5-34); BUN/Creatinine Ratio 30 (6-26); Blood Urea Nitrogen 20 mg/dL (7-20); Lactate Dehydrogenase 256 Units/L (159-327); Uric Acid 4.5 mg/dL (2.6-6.0); eGFR For African Americans > 60 (> 60); eGFR For Non-African Americans > 60 (> 60)
--- NOTE | 2016-04-11 03:58 | OB/GYN History & Physical ---
Date of Encounter: 04/11/16 Time of Encounter: 04:00 Assessment and Plan (1) 34 weeks gestation of Current visit: Yes Status: Acute (2) Elevated blood pressure reading Current visit: No Status: Acute (3) Factor 5 Leiden mutation, heterozygous Current visit: No Status: Chronic History of Present Illness HPI: Ms. Pelayo is a 30 year old female 5 para 3 at 34 weeks and 2/7 complaints of severe headache unrelieved by Tylenol and elevated blood pressure. She had been admitted last weekend for community-acquired pneumonia. On her initial presentation at that time her blood pressure was elevated but responded to one dose of labetalol. She presents complaining of recurrence of the symptoms. She denies contractions, vaginal bleeding, loss of fluid, and reports active fetus. Patient did receive steroids on her previous admission. Past Med Surg Social Fam HX - Past Medical History Medical history: GERD, other Psychiatric history: anxiety, depression - Past Surgical History Surgical History: , other - Social History Smoking Status: Current every day smoker Smokeless Tobacco Status: No Alcohol use: none Drug use: none - Family History Father Adopted: No Living Status: Hx Family Cancer: Yes (lung cancer) Obstetrical History - Pregnancies : 5 Para: 3 Ab's: 1 Medications and Allergies Albuterol Sulfate [Albuterol Inhaler] 2 puff IH QID PRN #1 inhaler 04/05/16 [Rx] Enoxaparin [Lovenox] 40 mg SQ DAILY 04/05/16 [History] Ferrous Sulfate [Iron] 325 mg PO BID 04/05/16 [History] Pnv95/Ferrous Fumarate/FA [ Caplet] 1 each PO DAILY 04/05/16 [History] Cyanocobalamin (Vitamin B-12) [Vitamin B-12] 250 mcg PO DAILY 04/07/16 [History] Pseudoephedrine [Sudafed] 30 mg PO Q4HR #12 tablet 04/08/16 [Rx] Allergies infliximab [From Remicade] Allergy (Verified 04/07/16 09:54) See Comments Unknown Sulfa (Sulfonamide Antibiotics) Allergy (Verified 04/07/16 09:54) See Comments pt states that she does not remember what type of reaction she had when she received sulfa medication but that she remembers being told to consider it an allergy sulfamethoxazole [From Bactrim] Allergy (Verified 04/07/16 09:54) Rash tramadol [From Ultram] Allergy (Verified 04/07/16 09:54) Difficulty Breathing trimethoprim [From Bactrim] Allergy (Verified 04/07/16 09:54) Rash aspirin [ASA] Adverse Reaction (Verified 04/07/16 09:54) Gastrointestinal Upset ibuprofen Adverse Reaction (Verified 04/07/16 09:54) Gastrointestinal Upset Review of System OB All systems PM: reviewed and no additional remarkable complaints except as stated - Genitourinary Genitourinary: amenorrhea - Menstruation Menstruation: amenorrhea - Neurological Nerological: as per HPI, headache(s) Exam - Constitutional Constitutional: well developed, mild distress, morbidly obese - Neck Neck exam: full ROM - Lungs Respiratory exam: CTAB - Cardiovascular Cardiovascular exam: RRR - Abdomen Abdomen: Present: gravid, non tender - Extremities Extremities exam: full ROM, pedal edema Deep Tendon Reflex Grade: 2+ Normal Results Result Diagrams: 04/11/16 02:55 04/11/16 02:55 Abnormal lab results Nucleated RBCs/100 WBC 1.3 /100 WBC (0) H 04/11/16 02:55 BUN/Creatinine Ratio 30 (6-26) H 04/11/16 02:55 All other labs normal. - Attending Attestation ashley palacios md [facility]
[2016-04-11 04:03] LABS: Protein/Creatinine Ratio,Urine 4.74 mg/mg (0-0.20)
[2016-04-11 04:05] LABS: Lymphocytes # 3.8 K/mcL (0.6-4.6); Monocytes # 0.8 K/mcL (0.0-1.3); Neutrophils # 3.6 K/mcL (1.6-8.9); Platelet Estimate Normal (Normal); Reactive Lymphocytes Present (Not Present)
--- NOTE | 2016-04-11 07:11 | OB/GYN Progress Note ---
Date of Encounter: 04/11/16 Time of Encounter: 07:08 - Assessment and Plan (1) 34 weeks gestation of Current Visit: Yes Status: Acute (2) Elevated blood pressure reading Current Visit: No Status: Acute Patient's urine protein to creatinine ratio is 4.74. Her blood pressure remains mildly elevated in the diastolics of 90. Will discuss management with Dr. Thomas who is assuming call this am . 24-hour urine for protein creatinine clearance has been started. (3) Factor 5 Leiden mutation, heterozygous Current Visit: No Status: Chronic Continue Lovenox as prescribed. Subjective - Subjective Interval history: Patient reports headache has improved from 9 out 10-4 out of 10. Patient reports the headache is located primarily on the right side diffusely. Objective - Vital Signs Vital Signs: Intake and Output 04/10/16 04/10/16 04/11/16 15:59 23:59 07:59 Other: Weight 109.9 kg Patient Weight 04/11/16 23:59 Weight 109.9 kg - Exam FHR: category 1 Comments: DTRs are 2+ / 2+ - Labs Labs: Abnormal lab results Nucleated RBCs/100 WBC 1.3 /100 WBC (0) H 04/11/16 02:55 Reactive Lymphocytes Present (Not Present) A 04/11/16 02:55 BUN/Creatinine Ratio 30 (6-26) H 04/11/16 02:55 Protein/Creatinin Ratio 4.74 mg/mg (0-0.20) H 04/11/16 03:38 Urine Total Protein 185 mg/dL (1-14) H 04/11/16 03:38
[~2016-04-11 07:40] MED LIST: *HR* Magnesium Sulfate 2 GM/50 ML PIGGYBACK IVPB ONE; *HR* Nalbuphine 20 MG/ML AMPUL IVP ONE; Acetaminophen 325 MG TABLET PO ONE; Calcium Gluconate 1,000 MG/10 ML VIAL IVPB PRN; Magnesium Sulfate 20 gm/500mL 20 GM/500 ML IV.SOLN IVC SCH; Ringers Solution, Lactated 1,000 ML IVC SCH
[2016-04-11] MEDS ORDERED: *HR* Morphine Sulfate/PF 5 MG/10 ML AMPUL ONE (07:52)
[2016-04-11] MEDS ORDERED: *HR* Oxytocin 10 UNIT/ML VIAL IM ONE (07:52)
[2016-04-11] MEDS ORDERED: Water for inj. (sterile) 10 ML IV ONE (07:52)
[2016-04-11] MEDS ORDERED: *HR* FentaNYL (PF) 100 MCG/2 ML VIAL ONE (07:52)
[2016-04-11] MEDS ORDERED: EPHEDrine 50 MG/ML VIAL ONE (07:52)
[2016-04-11] MEDS ORDERED: Ringers Solution, Lactated 1,000 ML IVC ONE (07:54)
[2016-04-11] MEDS ORDERED: Metoclopramide 10 MG/2 ML VIAL IVP ONE (07:54)
[2016-04-11] MEDS ORDERED: Famotidine 20 MG/2 ML VIAL IVP ONE (07:54)
[2016-04-11] MEDS ORDERED: CeFAZolin Pre 3,000 MG/100 ML 3,000 MG/100 ML BAG IVPB ONE (07:54)
--- NOTE | 2016-04-11 07:54 | Anesthesia Evaluation PreOp ---
Date of Encounter: 04/11/16 Time of Encounter: 07:30 - Past History Planned Operation: Repeat CSection Cardiac History: HTN, Other (Factor V Leiden....off Lovenox 2 days) Pulmonary History: Denies Any Significant HX FAMILY LIVING EDUCATOR History: Denies Any Significant HX Other Medical History: Denies Any Significant HX Anesthesia History: No Prior Anesthetic Complications : Yes (34 weeks) Alcohol Use: none Drug use: none Medications and Allergies Albuterol Sulfate [Albuterol Inhaler] 2 puff IH QID PRN #1 inhaler 04/05/16 [Rx] Enoxaparin [Lovenox] 40 mg SQ DAILY 04/05/16 [History] Ferrous Sulfate [Iron] 325 mg PO BID 04/05/16 [History] Pnv95/Ferrous Fumarate/FA [ Caplet] 1 each PO DAILY 04/05/16 [History] Cyanocobalamin (Vitamin B-12) [Vitamin B-12] 250 mcg PO DAILY 04/07/16 [History] Pseudoephedrine [Sudafed] 30 mg PO Q4HR #12 tablet 04/08/16 [Rx] Allergies infliximab [From Remicade] Allergy (Verified 04/07/16 09:54) See Comments Unknown Sulfa (Sulfonamide Antibiotics) Allergy (Verified 04/07/16 09:54) See Comments pt states that she does not remember what type of reaction she had when she received sulfa medication but that she remembers being told to consider it an allergy sulfamethoxazole [From Bactrim] Allergy (Verified 04/07/16 09:54) Rash tramadol [From Ultram] Allergy (Verified 04/07/16 09:54) Difficulty Breathing trimethoprim [From Bactrim] Allergy (Verified 04/07/16 09:54) Rash aspirin [ASA] Adverse Reaction (Verified 04/07/16 09:54) Gastrointestinal Upset ibuprofen Adverse Reaction (Verified 04/07/16 09:54) Gastrointestinal Upset - Meds/Allergy Pre-op Review Medications Reviewed: Yes Allergies Reviewed: Yes Beta Blockers on Current Med List: No Anesthesia Results - Labs 04/11/16 02:55 04/11/16 02:55 Anesthesia Exam O2 Sat Height 1.7 m Weight 109.9 kg Height: 5'7 Weight: 242 lbs NPO (# of Hours): MN - HEENT Pupil (Motor): Pupils equal, EOMI Mallampati: III Teeth: Normal Oral Opening: Less than or equal to 3 - FAMILY LIVING EDUCATOR LOC: Oriented FAMILY LIVING EDUCATOR Motor: Normal RUE, Normal LUE, Normal RLE, Normal LLE, Normal Face FAMILY LIVING EDUCATOR Sensory: Normal: RUE, LUE, RLE, LLE, Face - Cardiac Rhythm: Regular Murmur: None JVD: No Carotid Bruit: No - Pulmonary Breath Sounds: bilateral Clear Respiratory Effort: Symmetrical Anesthesia Assess/Plan ASA Score: 3 (, HTN, Factor V Leiden) Modified Britt Scale for Level of Consciousness: Cooperative, oriented, and tranquil (Discussed SAB, possible GA, agrees to proceed) Anesthetic Plan: Regional Monitoring Plan: Standard Monitors Recovery Plan: PACU
[2016-04-11] MEDS ORDERED: Ringers Solution, Lactated 1,000 ML IVC SCH (08:00)
--- NOTE | 2016-04-11 08:02 | OB/GYN Progress Note ---
Date of Encounter: 04/11/16 Time of Encounter: 08:00 - Assessment and Plan (1) Severe pre-eclampsia Current Visit: Yes Status: Acute Patient with severe pre-e based on her blood pressure, hypertension, and proteinuria. Risks, benefits, and alternatives were discussed with the patient. We will proceed with a section with tubal ligation. Qualifiers: Trimester: third trimester Qualified Code(s): O14.13 - Severe pre-eclampsia , third trimester (2) Sterilization Current Visit: Yes Status: Acute (3) 34 weeks gestation of Current Visit: Yes Status: Chronic Subjective - Subjective Principal diagnosis: severe pre-eclampsia Interval history: Patient presented with headache and hypertenison. Significant protein change in 2 days. She is 34 2/7 weeks with a history of pre-eclampsia with her twin that delivered at 33 weeks. She has been on Lovenox for Factor V, patient has not had a DVT herself. Antepartum ROS: movement normal, no loss of fluid Objective - Vital Signs Vital Signs: Intake and Output 04/10/16 04/11/16 04/11/16 23:59 07:59 15:59 Output Total 200 / 200 Balance -200 / -200 Output: Urine 200 / 200 Other: Weight 109.9 kg Patient Weight 04/11/16 23:59 Weight 109.9 kg BP continues to be 160/100 despite multiple doses of antihypertensives - Exam FHR: category 1 - Labs Labs: Abnormal lab results Nucleated RBCs/100 WBC 1.3 /100 WBC (0) H 04/11/16 02:55 Reactive Lymphocytes Present (Not Present) A 04/11/16 02:55 BUN/Creatinine Ratio 30 (6-26) H 04/11/16 02:55 Protein/Creatinin Ratio 4.74 mg/mg (0-0.20) H 04/11/16 03:38 Urine Total Protein 185 mg/dL (1-14) H 04/11/16 03:38
[2016-04-11] MEDS ORDERED: Water for inj. (sterile) 20 ML IV ONE (08:09)
[2016-04-11] MEDS ORDERED: Oxytocin 20 units/ LR 1000 mL 20 UNIT/1,000 ML BAG IVC ONE ×2 (09:44→12:06)
[2016-04-11] MEDS ORDERED: Ondansetron 4 MG/2 ML VIAL ONE (09:54)
--- NOTE | 2016-04-11 10:00 | OB/GYN Procedure Note ---
Section - Date of procedure: 04/11/16 Preop diagnosis: desires repeat , desires sterilization, other (severe pre-eclampsia) Post-op diagnosis: same Procedure: section, repeat low transverse, bilateral tubal ligation Surgeon: Nenita Thomas Estimated blood loss (cc): 500 Anesthesiologist: Дмитрий Narayan Skiver Hand: Marti Ag Anesthesia Type: Spinal section complications: none Disposition: L&D Recovery Room Specimens: Placenta, Cord blood, Right tube segment, Left tube segment - (s) Infant A Infant Delivery Date: 04/11/16 Infant Delivery Time: 08:56 Presentation: vertex Route of delivery: other ( section) Gender: Female Viability: Viable Pounds: 3 Ounces: 0 at 1 minute: 7 at 5 minutes: 8 Specimens collected: cord blood Placenta: spontaneous Cord: 3 umbilical vessels - Narrative Narrative: Patient was taken to the operative suite and placed under spinal anesthetic. She was then prepped and draped in normal sterile fashion in the dorsal supine position. Timeout was then performed. Antibiotics were given at room time. SCDs are on and active. Pfannenstiel skin incision is then made and carried through to underlying layer of fascia with the Bovie. The fascia was then incised in the midline and incision extended laterally with the Willingham scissors. The fascia was tented up and dissected off the rectus muscles sharply. The rectus muscles were in the midline and the peritoneum was tented up and entered sharply with the Metzenbaum scissors. The peritoneal incision was then extended bluntly. A low transverse uterine incision was then made. The infant vertex was brought to the incision and the was delivered using fundal pressure. There was no nuchal cord. Cord was clamped and cut. Infant was handed to waiting nursery staff. Placenta delivered spontaneously complete and intact with a three-vessel cord. The uterus was cleared of all clots and debris using moist laparotomy sponge. The uterine incision was then closed using 0 Vicryl in a running locked fashion. A second layer of the same suture was used. Multiple figure of 8 sutures were placed with both 0 and 4-0 vicryl to obtain excellent hemostasis along the uterine incision. Attention was then turned to the patients tube. The left tube was grasped and in a Krista fashion a knuckle of the tube was double suture ligated using 0 plain gut and transected. Hemostasis was assured. The right tube was then grasped and a knuckle of the tube was double suture ligated with 0 plain gut and transected. Hemostasis was assured. The abdomen was then cleared of all clots and debris using copious irrigation. The fascial incision was then closed using 0 PDS in a running fashion. The subcutaneous tissue is reapproximated using 0 plaing gut in a running fashion. The skin was closed using 4-0 Vicryl in a subcuticular fashion. Steri-Strips and sterile dressing are then placed. Mother is taken to recovery in stable condition. Baby girl was taken to the nursery is stable condition.
[2016-04-11] MEDS ORDERED: *HR* HYDROmorphone (PF) 1 MG/ML SYRINGE IVP PRN (10:57)
[2016-04-11] MEDS ORDERED: *HR* Promethazine 25 MG/ML VIAL IVP PRN (10:57)
[2016-04-11] MEDS ORDERED: *HR* Morphine 2 MG/ML SYRINGE IVP PRN ×2 (10:57→13:08)
--- NOTE | 2016-04-11 11:01 | Anesthesia Evaluation Post Op ---
Date of Encounter: 04/11/16 Time of Encounter: 10:53 - Vital Signs Vital Signs: vss - Lungs Lungs: Clear Ascult./Percussion - Airway Airway: Non-obstructed - Cardiovascular Regular Rate - Mental Status Mental Status: Alert & Oriented, Answers Appropriately - Pain Pain Scale: 6 Pain Scale used: Numeric (1 - 10) - Nausea Vomiting Nausea Vomiting: Not Present - Hydration Hydration: NPO, Alvarado catheter - Discharge PostOp Status: Transfer Patient to floor
[2016-04-11] MEDS ORDERED: Rho Immune Globulin 1,500 UNIT SYRINGE IM ONE ×2 (11:05→13:08)
[2016-04-11] MEDS ORDERED: Simethicone 80 MG TAB.CHEW PO PRN (13:08)
[2016-04-11] MEDS ORDERED: Metoclopramide 10 MG/2 ML VIAL IVP PRN (13:08)
[2016-04-11] MEDS ORDERED: Ondansetron 4 MG/2 ML VIAL IVP PRN ×2 (13:08)
[2016-04-11] MEDS ORDERED: Oxytocin 20 units/ LR 1000 mL 20 UNIT/1,000 ML BAG IV SCH (13:08)
[2016-04-11] MEDS ORDERED: Sennosides 8.6 MG TABLET PO PRN (13:08)
[2016-04-11] MEDS ORDERED: Calcium Gluconate 1,000 MG/10 ML VIAL IVPB PRN (13:08)
[2016-04-11] MEDS: *HR* HYDROmorphone (PF) 1 MG/ML SYRINGE IVP PRN ×2 (13:44→21:08)
[2016-04-11] MEDS: Acetaminophen 325 MG TABLET PO PRN (18:20)
[2016-04-11] MEDS: Magnesium Sulfate 20 gm/500mL 20 GM/500 ML IV.SOLN IVC SCH (18:35)
[2016-04-12] MEDS: *HR* HYDROmorphone (PF) 1 MG/ML SYRINGE IVP PRN ×2 (01:16→08:34)
[2016-04-12] MEDS: *HR* OxyCODONE/APAP 5/325 TABLET PO PRN ×5 (05:19→23:11)
[2016-04-12 06:09] LABS: Basophils % 0.3 %; Eosinophils # 0.1 K/mcL (0.0-0.6); Eosinophils % 0.7 %; Hematocrit 33.5 % (35.3-44.9); Hemoglobin 11.5 g/dL (11.5-15.4); Lymphocytes # 1.7 K/mcL (0.6-4.6); Lymphocytes % 16.4 %; Mean Corpuscular HGB Conc 34.3 g/dL (31.6-35.5); Mean Corpuscular Hemoglobin 31.4 pg (28.0-33.3); Mean Corpuscular Volume 91.5 fL (83.0-100.0); Mean Platelet Volume 11.4 fL (9.4-12.4); Monocytes # 0.6 K/mcL (0.0-1.3); Monocytes % 5.9 %; Neutrophils # 7.6 K/mcL (1.6-8.9); Platelet Count 144 K/mcL (140-400); Red Blood Count 3.66 M/mcL (3.82-4.97); Red Cell Distribution Width 13.6 % (11.5-14.5); Segmented Neutrophils % 73.7 %
[2016-04-12] MEDS: Magnesium Sulfate 20 gm/500mL 20 GM/500 ML IV.SOLN IVC SCH (06:16)
[2016-04-12 08:38] LABS: Alanine Aminotransferase 21 Units/L (0-55); Aspartate Amino Transferase 19 Units/L (5-34); BUN/Creatinine Ratio 15 (6-26); Lactate Dehydrogenase 254 Units/L (159-327); Uric Acid 4.1 mg/dL (2.6-6.0); eGFR For African Americans > 60 (> 60); eGFR For Non-African Americans > 60 (> 60)
[2016-04-12 08:39] LABS: Blood Urea Nitrogen 8 mg/dL (7-20)
--- NOTE | 2016-04-12 08:48 | OB/GYN Progress Note ---
Date of Encounter: 04/12/16 Time of Encounter: 08:46 - Assessment and Plan (1) S/P Current Visit: Yes Status: Acute Doing well, cont. post op care. (2) Severe preeclampsia Current Visit: Yes Status: Acute Stable, will start Labetalol and recheck PIH labs in am. Qualifiers: Trimester: unspecified trimester Qualified Code(s): O14.10 - Severe pre- eclampsia, unspecified trimester (3) Factor 5 Leiden mutation, heterozygous Current Visit: No Status: Chronic Cont. Lovenox. Subjective - Subjective Principal diagnosis: severe preeclampsia s/p Interval history: Doing well, c/o appropriate incisional pain. No preeclampsia symptoms. Regular diet withou n/v Objective - Vital Signs Latest vital signs: Vital Signs Temp Pulse Pulse Resp BP Pulse Ox 04/12/16 07:05 108 20 147/96 04/12/16 06:27 95 18 147/99 04/12/16 05:00 90 20 152/99 04/12/16 04:00 98 F 93 16 145/94 94 L 04/12/16 03:00 88 16 151/96 04/12/16 02:05 86 20 147/98 04/12/16 01:00 96 20 151/101 04/12/16 00:10 98.1 F 94 16 145/95 97 04/11/16 23:10 90 16 142/95 04/11/16 22:25 18 96 04/11/16 22:05 97.9 F 87 14 146/89 98 04/11/16 21:02 97.6 F 93 12 146/103 97 04/11/16 20:10 97.8 F 89 14 151/96 96 04/11/16 19:08 83 16 139/93 04/11/16 18:13 97.7 F 91 16 138/87 94 L 04/11/16 17:10 98.4 F 88 16 142/95 94 L 04/11/16 16:10 97.7 F 84 84 16 145/91 93 L 04/11/16 15:15 97.6 F 88 88 15 138/89 95 04/11/16 13:45 97.8 F 91 92 16 142/91 94 L 04/11/16 13:20 97.5 F L 90 90 16 137/89 95 04/11/16 12:45 88 88 18 145/91 04/11/16 12:11 92 18 140/83 04/11/16 11:09 77 18 138/81 04/11/16 10:02 77 17 152/93 Intake and Output 04/11/16 04/12/16 04/12/16 23:59 07:59 15:59 Intake Total 2140 / 2140 1000 / 1000 Output Total 1000 / 1000 1630 / 1630 Balance -1000 / -1000 510 / 510 1000 / 1000 Intake: IV Fluids 1300 / 1300 1000 / 1000 Pitocin 20 unit In 1,000 800 / 800 ml @ 75 mls/hr IV . [id number] SUSHANT Rx#: [id number] Magnesium Sulfate 20 gm/ 500 / 500 100 / 100 500mL Premix 20 gm In 500 ml @ 2 GM/HR 50 mls/hr IVC .Q10H SUSHANT Rx#: [id number] Oral 840 / 840 Output: Urine 1000 / 1000 1630 / 1630 - Exam Lungs: bilateral: normal Chest: Normal S1, Normal S2 Extremities: Present: normal Abdomen: Present: other (appropriate tenderness) Incision: Present: normal, intact - Labs Labs: Laboratory Results - last 24 hr 04/11/16 04/12/16 04/12/16 10:24 05:15 07:49 WBC 10.2 RBC 3.66 L Hgb 11.5 Hct 33.5 L MCV 91.5 MCH 31.4 MCHC 34.3 RDW 13.6 Plt Count 144 MPV 11.4 Immature Gran % 3.0 Seg Neutrophils % 73.7 Lymphocytes % 16.4 Monocytes % 5.9 Eosinophils % 0.7 Basophils % 0.3 Neutrophils # 7.6 Lymphocytes # 1.7 Monocytes # 0.6 Eosinophils # 0.1 Basophils # 0.0 BUN 8 D Creatinine 0.54 L Est GFR ( Amer) > 60 Est GFR (Non-Af Amer) > 60 BUN/Creatinine Ratio 15 Uric Acid 4.1 AST 19 ALT 21 Lactate Dehydrogenase 254 Baby's Blood Type A RH NEGATIVE Mother's Blood Type A RH NEGATIVE Rhogam Indicated NO
[2016-04-12] MEDS: *HR* Enoxaparin 40 MG/0.4 ML SYRINGE SQ SCH (09:45)
[2016-04-12] MEDS: Prenatal Vit/FA 1 EACH TABLET PO SCH (09:45)
[2016-04-13] MEDS: *HR* OxyCODONE/APAP 5/325 TABLET PO PRN ×3 (04:43→15:06)
[2016-04-13 05:18] LABS: Basophils % 0.3 %; Eosinophils % 0.4 %; Hematocrit 31.9 % (35.3-44.9); Hemoglobin 10.9 g/dL (11.5-15.4); Immature Granulocytes % 4.2 % (0-4); Lymphocytes # 1.3 K/mcL (0.6-4.6); Lymphocytes % 17.9 %; Mean Corpuscular HGB Conc 34.2 g/dL (31.6-35.5); Mean Corpuscular Hemoglobin 31.2 pg (28.0-33.3); Mean Corpuscular Volume 91.4 fL (83.0-100.0); Mean Platelet Volume 10.6 fL (9.4-12.4); Monocytes # 0.6 K/mcL (0.0-1.3); Monocytes % 8.4 %; Platelet Count 165 K/mcL (140-400); Red Blood Count 3.49 M/mcL (3.82-4.97); Red Cell Distribution Width 14.2 % (11.5-14.5); Segmented Neutrophils % 68.8 %
[2016-04-13 05:36] LABS: Alanine Aminotransferase 18 Units/L (0-55); Aspartate Amino Transferase 15 Units/L (5-34); BUN/Creatinine Ratio 13 (6-26); Blood Urea Nitrogen 8 mg/dL (7-20); Lactate Dehydrogenase 222 Units/L (159-327); Uric Acid 5.2 mg/dL (2.6-6.0); eGFR For African Americans > 60 (> 60); eGFR For Non-African Americans > 60 (> 60)
[2016-04-13] MEDS: Acetaminophen 325 MG TABLET PO PRN (08:32)
[2016-04-13] MEDS: Prenatal Vit/FA 1 EACH TABLET PO SCH (08:33)
[2016-04-13] MEDS: *HR* Enoxaparin 40 MG/0.4 ML SYRINGE SQ SCH (08:34)
--- NOTE | 2016-04-13 08:38 | Discharge Summary ---
Date of Encounter: 04/13/16 Time of Encounter: 08:28 - Discharge Diagnosis (1) Severe pre-eclampsia Priority: Primary Status: Acute Qualifiers: Trimester: third trimester Qualified Code(s): O14.13 - Severe pre-eclampsia , third trimester (2) Sterilization Priority: Secondary Status: Acute (3) 34 weeks gestation of Priority: Secondary Status: Chronic (4) S/P Priority: Secondary Status: Acute Comments: Routine postop care - Discharge Medications Prescriptions: OxyCODONE/APAP 5/325 [Percocet 5/325 MG] 1 each PO Q4HR PRN #42 tablet PRN Reason: Moderate pain 4-6 Breast Pump [BREAST PUMP] 1 each .ROUTE AD #1 each Enoxaparin [Lovenox] 40 mg SQ DAILY #30 syringe Labetalol [Trandate] 100 mg PO BID #60 tablet Home Medications: Albuterol Sulfate [Albuterol Inhaler] 2 puff IH QID PRN #1 inhaler 04/05/16 [Rx] Pnv95/Ferrous Fumarate/FA [ Caplet] 1 each PO DAILY 04/05/16 [History] Pseudoephedrine [Sudafed] 30 mg PO Q4HR #12 tablet 04/08/16 [Rx] Breast Pump [BREAST PUMP] 1 each .ROUTE AD #1 each 04/13/16 [Rx] Enoxaparin [Lovenox] 40 mg SQ DAILY #30 syringe 04/13/16 [Rx] Labetalol [Trandate] 100 mg PO BID #60 tablet 04/13/16 [Rx] OxyCODONE/APAP 5/325 [Percocet 5/325 MG] 1 each PO Q4HR PRN #42 tablet 04/13/16 [Rx] Allergies/Adverse Reactions: Allergies infliximab [From Remicade] Allergy (Verified 04/07/16 09:54) See Comments Unknown Sulfa (Sulfonamide Antibiotics) Allergy (Verified 04/07/16 09:54) See Comments pt states that she does not remember what type of reaction she had when she received sulfa medication but that she remembers being told to consider it an allergy sulfamethoxazole [From Bactrim] Allergy (Verified 04/07/16 09:54) Rash tramadol [From Ultram] Allergy (Verified 04/07/16 09:54) Difficulty Breathing trimethoprim [From Bactrim] Allergy (Verified 04/07/16 09:54) Rash aspirin [ASA] Adverse Reaction (Verified 04/07/16 09:54) Gastrointestinal Upset ibuprofen Adverse Reaction (Verified 04/07/16 09:54) Gastrointestinal Upset Data Procedures and tests throughout hospitalization: Laboratory Tests 04/11/16 04/11/16 04/11/16 02:55 02:55 03:38 WBC 8.2 D RBC 3.93 Hgb 12.1 Hct 35.6 MCV 90.6 MCH 30.8 MCHC 34.0 RDW 13.6 Plt Count 177 MPV 11.8 Immature Gran % Seg Neutrophils % 44.0 Lymphocytes % 46.0 Monocytes % 10.0 Eosinophils % Basophils % Neutrophils # 3.6 Lymphocytes # 3.8 Monocytes # 0.8 Eosinophils # Basophils # Nucleated RBCs/100 WBC 1.3 H Reactive Lymphocytes Present A Platelet Estimate Normal BUN 20 Creatinine 0.67 Est GFR ( Amer) > 60 Est GFR (Non-Af Amer) > 60 BUN/Creatinine Ratio 30 H Uric Acid 4.5 AST 29 ALT 36 Lactate Dehydrogenase 256 Urine Creatinine 39 Protein/Creatinin Ratio 4.74 H Urine Total Protein 185 H Baby's Blood Type Mother's Blood Type Rhogam Indicated 04/11/16 04/12/16 04/12/16 10:24 05:15 07:49 WBC 10.2 RBC 3.66 L Hgb 11.5 Hct 33.5 L MCV 91.5 MCH 31.4 MCHC 34.3 RDW 13.6 Plt Count 144 MPV 11.4 Immature Gran % 3.0 Seg Neutrophils % 73.7 Lymphocytes % 16.4 Monocytes % 5.9 Eosinophils % 0.7 Basophils % 0.3 Neutrophils # 7.6 Lymphocytes # 1.7 Monocytes # 0.6 Eosinophils # 0.1 Basophils # 0.0 Nucleated RBCs/100 WBC Reactive Lymphocytes Platelet Estimate BUN 8 D Creatinine 0.54 L Est GFR ( Amer) > 60 Est GFR (Non-Af Amer) > 60 BUN/Creatinine Ratio 15 Uric Acid 4.1 AST 19 ALT 21 Lactate Dehydrogenase 254 Urine Creatinine Protein/Creatinin Ratio Urine Total Protein Baby's Blood Type A RH NEGATIVE Mother's Blood Type A RH NEGATIVE Rhogam Indicated NO 04/13/16 04/13/16 04:38 04:38 WBC 7.3 RBC 3.49 L Hgb 10.9 L Hct 31.9 L MCV 91.4 MCH 31.2 MCHC 34.2 RDW 14.2 Plt Count 165 MPV 10.6 Immature Gran % 4.2 H Seg Neutrophils % 68.8 Lymphocytes % 17.9 Monocytes % 8.4 Eosinophils % 0.4 Basophils % 0.3 Neutrophils # 5.0 Lymphocytes # 1.3 Monocytes # 0.6 Eosinophils # 0.0 Basophils # 0.0 Nucleated RBCs/100 WBC Reactive Lymphocytes Platelet Estimate BUN 8 Creatinine 0.63 Est GFR ( Amer) > 60 Est GFR (Non-Af Amer) > 60 BUN/Creatinine Ratio 13 Uric Acid 5.2 AST 15 ALT 18 Lactate Dehydrogenase 222 Urine Creatinine Protein/Creatinin Ratio Urine Total Protein Baby's Blood Type Mother's Blood Type Rhogam Indicated Labs on day of discharge: Labs from last 24 hours 04/13/16 04/13/16 04/12/16 04:38 04:38 07:49 WBC 7.3 RBC 3.49 L Hgb 10.9 L Hct 31.9 L MCV 91.4 MCH 31.2 MCHC 34.2 RDW 14.2 Plt Count 165 MPV 10.6 Immature Gran % 4.2 H Seg Neutrophils % 68.8 Lymphocytes % 17.9 Monocytes % 8.4 Eosinophils % 0.4 Basophils % 0.3 Neutrophils # 5.0 Lymphocytes # 1.3 Monocytes # 0.6 Eosinophils # 0.0 Basophils # 0.0 BUN 8 8 D Creatinine 0.63 0.54 L Est GFR ( Amer) > 60 > 60 Est GFR (Non-Af Amer) > 60 > 60 BUN/Creatinine Ratio 13 15 Uric Acid 5.2 4.1 AST 15 19 ALT 18 21 Lactate Dehydrogenase 222 254 Date of admission: 04/11/16 07:40 Primary care physician: Analia Heredia Consults: 04/11/16 13:08 Consult to Sanitation Director (W&C) [CONS] Routine Reason For Exam: Reason for SW Consult: does not have any supplies for this (premie) Discharging clinician: Nenita Thomas Anticipated date of discharge: 04/13/16 - Patient Status Disposition: Home, Self-Care Condition: Good Functional capacity at discharge: independent ambulation Overall status at discharge: patient is progressing back to baseline - Discharge Instructions Follow Up With: Nenita Thomas DO [Partnered Physician] - (2016 @ 3:30 pm) - Diet and Activity Activity: increase activity as tolerated Diet: advance to your usual diet Hospital Course Reason for admission: section, pre-eclampsia Delivery: section Episiotomy: none Laceration: none Other procedures: tubal ligation complications: none Discharge diagnosis: delivery [place] baby: female Hospital course: Patient admitted and diagnosed with severe pre-eclampsia. She was started on magnesium sulfate and repeat section was performed. Magnesium was discontinued after 24 hours. Her blood pressures remained stable with labetolol 100 mg po bid. She was discharged home on POD # 2 to go be with the baby at [facility]. She has a history of factor v and has been on Lovenox this . It will be continued for 6 weeks Time Attestation: Total time spent providing and/or coordinating discharge services: Time Spent: Less than 30 minutes - VTE Reasons for not Prescribing Prophylaxis: Treatment not Indicated - Low risk for VTE Documentation of Mechanical Device: Intermittent pneumatic compression device Exam - Constitutional Vitals: Temp Pulse Resp BP Pulse Ox 99.5 F 105 18 157/89 95 04/13/16 04:30 04/13/16 04:30 04/13/16 04:30 04/13/16 04:30 04/13/16 04:30 General appearance IM: A&O X 3 - Respiratory Respiratory exam: Present: CTAB - Cardiovascular Cardiovascular exam IM: Present: RRR - GI/Abdominal GI/Abdominal exam IM: normal bowel sounds, tenderness (appropriate postop tenderness) Incision: normal, dry, intact - Uterine Tone: Firm Uterus Position: At Umbilicus - Extremities Exam Extremities exam IM: Absent: calf tenderness
[2016-04-13 20:29] VITALS: BP 146/95
== END 2016-04-13 21:18 | disposition home or self-care (01) | DRG 540 ==
LOC: 1NENULAB → 1NENUOBS 13:07
PROVIDERS: ADMIT Obstetrics & Gynecology; ATTEND Obstetrics & Gynecology